=== PATIENT | male | born 1935 | race Caucasian/White ===

== ENCOUNTER 2016-05-20 06:12 | Day surgery (SDC) | payer BC ==
--- NOTE | ~2016-05-20 | EGD ---
EGD REPORT [facility] [address] [address] NAME: BLADIMIR AVALOS : [birth year] STATUS : REG [facility]#: [id number] AGE: 80 ADM/REG DATE : 05/20/16 MR#: [id number] REPORT SERV DATE: 05/20/16 DICTATED BY: TAYLOR WARREN DATE: 05/20/16 REPORT STATUS : Draft TRANSCRIBED BY: [facility] DATE: 05/20/16 Endoscopy Center Patient Name: Bladimir Avalos Date of : 1935 Attending MD: TAYLOR WARREN MD Procedure Date No Time: 05/20/2016 Procedure: Colonoscopy Indications: High risk colon cancer surveillance: Personal history of colonic polyps Referring MD: Dominick Bee Medicines: Monitored Anesthesia Care Complications: No immediate complications. Procedure: Pre-Anesthesia Assessment: - ASA Grade Assessment: II - A patient with mild systemic disease. After I obtained informed consent, the scope was passed under direct vision. Throughout the procedure, the patient's blood pressure, pulse, and oxygen saturations were monitored continuously. The CF [id number] was introduced through the anus and advanced to the cecum, identified by appendiceal orifice and ileocecal valve. The colonoscopy was performed without difficulty. The patient tolerated the procedure well. The quality of the bowel preparation was good. Findings: The digital rectal exam was normal. Pertinent negatives include no palpable rectal lesions. Multiple diverticula were found in the sigmoid colon and in the descending colon. Hemorrhoids were found during retroflexion and were moderate. A sessile polyp was found in the transverse colon. The polyp was 6 mm in size. The polyp was removed with a cold biopsy forceps. Resection and retrieval were complete. A sessile polyp was found in the transverse colon. The polyp was 18 mm in size. The polyp was removed with a hot snare. Resection was complete, and retrieval was complete. A sessile polyp was found in the ascending colon. The polyp was 11 mm in size. The polyp was removed with a cold snare. Resection and retrieval were complete. A sessile polyp was found in the rectum. The polyp was 5 mm in size. The polyp was removed with a cold biopsy forceps. Resection and retrieval were complete. Impression: - Diverticulosis in the sigmoid colon and in the EGD REPORT [address] [place]. [address] NAME: BLADIMIR AVALOS : [birth year] STATUS : REG [facility]#: [id number] AGE: 80 ADM/REG DATE : 05/20/16 MR#: [id number] REPORT SERV DATE: 05/20/16 DICTATED BY: TAYLOR WARREN DATE: 05/20/16 REPORT STATUS : Draft TRANSCRIBED BY: [employer] [employer] DATE: 05/20/16 descending colon. - Hemorrhoids. - One 6 mm polyp in the transverse colon. Resected and retrieved. - One 18 mm polyp in the transverse colon. Resected and retrieved. - One 11 mm polyp in the ascending colon. Resected and retrieved. - One 5 mm polyp in the rectum. Resected and retrieved. Recommendation: - Patient has a contact number available for emergencies. The signs and symptoms of potential delayed complications were discussed with the patient. Return to normal activities tomorrow. Written discharge instructions were provided to the patient. - Regular diet. - Regular diet. - Await pathology results. - Repeat colonoscopy is not recommended for surveillance. - Due to patient age no further polyp surveillance colonoscopies planned. Procedure Code(s): --- Professional --- 23318, Colonoscopy, flexible, proximal to splenic flexure; with removal of tumor(s), polyp(s), or other lesion(s) by snare technique 62836, 59, Colonoscopy, flexible, proximal to splenic flexure; with biopsy, single or multiple Diagnosis Code(s): --- Professional --- K64.9, Unspecified hemorrhoids K57.30, Diverticulosis of large intestine without perforation or abscess without bleeding K62.1, Rectal polyp D12.2, Benign neoplasm of ascending colon D12.3, Benign neoplasm of transverse colon Z86.010, Personal history of colonic polyps CPT copyright 2013 [employer]. All rights reserved. The codes documented in this report are preliminary and upon fire control officer review may be revised to meet current compliance requirements. TAYLOR WARREN MD 05/20/2016 8:18 AM EGD REPORT [facility] [address] [id number] NAME: BLADIMIR AVALOS : [birth year] STATUS : REG [facility] PAT#: [id number] AGE: 80 ADM/REG DATE : 05/20/16 MR#: [id number] REPORT SERV DATE: 05/20/16 DICTATED BY: TAYLOR WARREN DATE: 05/20/16 REPORT STATUS : Draft TRANSCRIBED BY: [employer] DATE: 05/20/16 This report has been signed electronically. Number of Addenda: 0 Note Initiated On: 05/20/2016 7:40 AM Scope Withdrawal Time 0 hours 7 minutes 47 seconds [place] [id number]
[~2016-05-20 06:12] MED LIST: FISH OIL PO; FLOMAX4 PO; MULTIPLE VIT PO; PREV30 PO; STERAPRED DS10 MG; T PO; Z300 PO; ZBETA10 PO
== END 2016-05-20 23:59 | disposition home health service (06) ==
LOC: DMU 06:12
PROVIDERS: Internal Medicine Gastroenterology
PROC: 0DBL8ZZ Excision of Transverse Colon, Via Natural or Artificial Opening Endoscopic (ICD-10-PCS; 2016-05-20)
PROC: 0DBK8ZZ Excision of Ascending Colon, Via Natural or Artificial Opening Endoscopic (ICD-10-PCS; 2016-05-20)
PROC: 0DBL8ZX Excision of Transverse Colon, Via Natural or Artificial Opening Endoscopic, Diagnostic (ICD-10-PCS; principal; 2016-05-20 07:30)
PROC: 0DBP8ZX Excision of Rectum, Via Natural or Artificial Opening Endoscopic, Diagnostic (ICD-10-PCS; 2016-05-20 07:30)
DX: D12.3 Benign neoplasm of transverse colon (principal); K63.5 Polyp of colon; K62.1 Rectal polyp; K57.30 Diverticulosis of large intestine without perforation or abscess without bleeding; K64.9 Unspecified hemorrhoids; I10 Essential (primary) hypertension; M19.90 Unspecified osteoarthritis, unspecified site; K21.9 Gastro-esophageal reflux disease without esophagitis; N40.0 Benign prostatic hyperplasia without lower urinary tract symptoms; Z86.010 Personal history of colon polyps
CPT/HCPCS: 88305